=== PATIENT | male | born 2000 | race Caucasian/White ===

== ENCOUNTER 2020-11-28 22:45 | Emergency (ER) | payer OTHER ==
[~2020-11-28] VITALS: Ht 196 cm; Wt 167.8 kg
--- NOTE | 2020-11-28 23:39 | ED Fall/Injury ---
General Chief Complaint: Lower Extremity Stated Complaint: FELL / L HAND LACERTION / R KNEE INJ Nursing Triage Note: AMBULATES TO ROOM #7 W/CO WORK RELATED INJURY. PT REPORTS AT 0 ON THIS DAY WHILE AT WORK ([employer] [employer] [facility]) HE SLIPPED ON WATER RESULTING IN PT FALLING AND BREAKING GLASS OVEN WINDOW WITH R KNEE. PT REPORTS PAIN AND SWELLING TO R KNEE. MULTIPLE SUPERFICIAL ABRASIONS NOTED TO R KNEE. APPROX 1CM LACERATION NOTED TO PALMAR ASPECT OF L HAND (CONTROLLED BLEEDING). MULTIPLE SUPERFICIAL ABRASIONS NOTED TO R ARM. DENIES FURTHER INJURIES. PT REPORTS HE IS CURRENT ON TETANUS VACCINE (2019). Source: patient History of Present Illness Date Seen by Provider: Nov 28, 2020 Time Seen by Provider: 23:20 Initial Comments PT ARRIVES VIA POV FROM WORK AT [facility] PT STATES HE WAS CLEANING UP, AND SLIPPED ON A SLICK FLOOR, AND FELL, HITTING HIS RIGHT KNEE ON A GLASS DOOR OF AN OVEN AND BROKE IT HE WAS CARRYING A METAL TRAY AT THE TIME, AND CUT HIS LEFT PALM ON THE EDGE OF THE TRAY HE FELL OCCURRED TONIGHT AT 0 DID NOT HIT HIS HEAD NO NECK OR BACK PAIN NO PARESTHESIAS OR MOTOR DEFICITS C/O PAIN AND SWELLING TO RIGHT KNEE, WITH SUPERFICIAL ABRASIONS TO KNEE. HAS SUPERFICIAL LACERATION TO LEFT PALM AND RIGHT ARM PT IS UP TO DATE ON TETANUS VACCINE--2019 Review of Systems Review of Systems Constitutional: no symptoms reported Respiratory: no symptoms reported Cardiovascular: no symptoms reported Gastrointestinal: no symptoms reported Genitourinary: no symptoms reported Musculoskeletal: see HPI Skin: see HPI Psychiatric/Neurological: No Symptoms Reported Past Lvurysj-Lqbyam-Fvsmgq Hx Patient Social History Tobacco Use?: No Alcohol Use?: Yes Alcohol Frequency: Once in a while Pt feels they are or have been: No Immunizations Up To Date Tetanus Booster (TDap): Less than 5yrs Past Medical History Surgeries: No Respiratory: No Cardiac: No Neurological: No Genitourinary: No Gastrointestinal: No Musculoskeletal: No Endocrine: No HEENT: No Cancer: No Psychosocial: No Integumentary: No Blood Disorders: No Physical Exam Vital Signs Vital Signs - First Documented 11/28/20 23:05 Temp 36.1 Pulse 78 Resp 18 B/P (MAP) 143/106 (118) Pulse Ox 97 O2 Delivery Room Air Capillary Refill : Less Than 3 Seconds Height, Weight, BMI Height: '" Weight: lbs. oz. kg; 43.00 BMI Method: General Appearance: WD/WN, no apparent distress, obese Extremities: other (RIGHT KNEE WITH DIFFUSE ANTERIOR TENDERNESS, WITH VERY SLIGHT SWELLING, AND SUPERFICIAL ABRASIONS--NO BLEEDING. FULL ROM, SENSORY/VASCULAR INTACT. LEFT PALM WITH SUPERFICIAL 1 CM LACERATION WITHOUT ACTIVE BLEEDING, FULL ROM, SENSORY/VASCULAR INTACT. FEW SUPERFICIAL ABRASIONS TO RIGHT FOREARM. NO BLEEDING. MOTOR/SENSORY/VASCULAR INTACT. ) Neurologic/Psychiatric: no motor/sensory deficits, alert, normal mood/affect, oriented x 3 Skin: normal color, warm/dry, other ( ABOVE) Progress/Results/Core Measures Results/Orders My Orders Orders - KEYSHAWN HANNA DO Hand, Left, 3 Views (11/28/20 23:27) Knee, Right, 3 Views (11/28/20 23:27) Vital Signs/I&O 11/28/20 23:05 Temp 36.1 Pulse 78 Resp 18 B/P (MAP) 143/106 (118) Pulse Ox 97 O2 Delivery Room Air Blood Pressure Mean: 118 Departure Impression Primary Impression: Contusion of right knee Additional Impressions: Superficial laceration of left hand Abrasions of multiple sites Disposition: 01 HOME, SELF-CARE Condition: Stable Departure-Patient Inst. Decision time for Depature: 00:10 Referrals: [facility] Patient Instructions: Abrasions ED, Contusion (DC), Wound Care ED Add. Discharge Instructions: CLEAN WOUNDS TWICE A DAY WITH ANTIBACTERIAL SOAP AND WATER, APPLY ANTIBIOTIC OINTMENT AND FRESH DRESSING TWICE A DAY TYLENOL 1 GRAM / MOTRIN 800 MG 4 TIMES A DAY FOR PAIN FOLLOW UP WITH [facility] TOMORROW FOR FURTHER CARE All discharge instructions reviewed with patient and/or family. Voiced understanding. KEYSHAWN HANNA DO Nov 28, 2020 23:39
[2020-11-29] MEDS ORDERED: RX-MUPIROCIN (BACTROBAN) 2% OINT 22 GM TUBE TOP STA (00:16)
--- NOTE | 2020-11-29 00:24 | Diagnostic Imaging Report ---
INDICATION: knee pain TECHNIQUE: 3 views of the right knee CORRELATION STUDY: None FINDINGS: The joint spaces are maintained. The articular surfaces are smooth and preserved. There is no acute bony abnormality. Soft tissues are unremarkable. IMPRESSION: 1. Negative for acute bony abnormality of the knee. Dictated by: Dictated on workstation # [id number]
--- NOTE | 2020-11-29 00:24 | Diagnostic Imaging Report ---
INDICATION: Left hand pain, laceration. TECHNIQUE: Three views of the left hand. CORRELATION STUDY: None FINDINGS: There is normal alignment and appearance of the osseous structures of the hand. The joint spaces are maintained. There is no acute fracture. Soft tissues are unremarkable. No foreign body. IMPRESSION: 1. Negative for acute bony abnormality of the hand. Dictated by: Dictated on workstation # [id number]
[2020-11-29 00:53] VITALS: BP 118/94
== END 2020-11-29 00:54 | disposition home or self-care (01) ==
LOC: ER 22:49
DX: S61.412A Laceration without foreign body of left hand, initial encounter (principal); S80.01XA Contusion of right knee, initial encounter; S50.811A Abrasion of right forearm, initial encounter; E66.9 Obesity, unspecified; Z68.41 Body mass index [BMI] 40.0-44.9, adult; W01.198A Fall on same level from slipping, tripping and stumbling with subsequent striking against other object, initial encounter
CPT/HCPCS: 73130; 73562